=== PATIENT | female | born 1985 | race Asian ===

== ENCOUNTER 2025-09-03 09:05 | Outpatient (CLI) | payer BC, SELFPAY ==
--- NOTE | 2025-09-03 09:15 | CRLHL7_ITS ---
For Patients: As a result of the Century Cures Act, medical imaging exams and procedure reports are released immediately into your electronic medical record. You may view this report before your referring provider. If you have questions, please contact your health care provider. BILATERAL DIGITAL SCREENING MAMMOGRAM WITH COMPUTER-AIDED DETECTION AND TOMOSYNTHESIS CLINICAL HISTORY: Routine screening exam. COMPARISON: None. TECHNIQUE: Digital mammogram in CC and MLO projections including computer-aided detection (CAD). Tomosynthesis was used in this interpretation. BREAST COMPOSITION: The breasts are almost entirely fatty. FINDINGS: RIGHT Breast: No suspicious findings. LEFT Breast: Nodular density within the upper inner quadrant 9 cm from the nipple. IMPRESSION: LEFT breast asymmetry/mass. RECOMMENDATIONS: Additional mammographic views of the LEFT breast including 3D spot-compression CC/MLO. LEFT breast ultrasound may also be required. The [facility] will contact the patient. A lay language report of this examination will be provided to the patient. BI-RADS Category 0: Incomplete: Need Additional Imaging Evaluation Dictated by Chandler Sloan MD @ 09/03/2025 10:21:00 AM/CRL:[email or web address] MAHER/Dictated by: Chandler Sloan MD @ 09/03/2025 10:21:00 AM (Electronically Signed)
== END 2025-09-03 09:06 | disposition home or self-care (01) ==
LOC: MAMMO 09:12
PROVIDERS: PCP Family Medicine; Visit Provider Family Medicine
DX: Z12.31 Encounter for screening mammogram for malignant neoplasm of breast (principal); N63.20 Unspecified lump in the left breast, unspecified quadrant
CPT/HCPCS: 77063; 77067

== ENCOUNTER 2025-09-24 09:34 | Outpatient (CLI) | payer BC, SELFPAY ==
--- NOTE | 2025-09-24 09:45 | CRLHL7_ITS ---
For Patients: As a result of the Cures Act, medical imaging exams and procedure reports are released immediately into your electronic medical record. You may view this report before your referring provider. If you have questions, please contact your health care provider. DIGITAL DIAGNOSTIC LEFT MAMMOGRAM USING TOMOSYNTHESIS LEFT BREAST ULTRASOUND CLINICAL HISTORY: LEFT breast mass/asymmetry. COMPARISON: 09/03/2025. TECHNIQUE: Digital LEFT mammogram in three projections. Tomosynthesis was used in this interpretation. Real-time ultrasound imaging of LEFT breast with imaging documentation. BREAST COMPOSITION: There are scattered areas of fibroglandular density. FINDINGS: Additional mammogram images LEFT breast submitted. Persistent nodular density is present without architectural distortion in the upper breast. No suspicious calcifications. Targeted LEFT breast ultrasound performed. At 11 o`clock 12 cm from the nipple there is a solid hypoechoic nodule which measures 6 x 3 x 8 mm. IMPRESSION: Indeterminate nodule LEFT breast 11 o`clock 12 cm from the nipple. RECOMMENDATIONS: Ultrasound-guided core needle biopsy recommended. A lay language report of this examination will be provided to the patient. BI-RADS Category 4: Suspicious Dictated by Chandler Sloan MD @ 09/24/2025 10:32:01 AM jj/Dictated by: Chandler Sloan MD @ 09/24/2025 10:32:00 AM (Electronically Signed)
--- NOTE | 2025-09-24 10:15 | CRLHL7_ITS ---
For Patients: As a result of the Cures Act, medical imaging exams and procedure reports are released immediately into your electronic medical record. You may view this report before your referring provider. If you have questions, please contact your health care provider. SEE DIGITAL DIAGNOSTIC LEFT MAMMOGRAM PERFORMED SAME DAY CRL:[email or web address] [email or web address]/Dictated by: Chandler Sloan MD @ 09/24/2025 10:39:00 AM (Electronically Signed)
== END 2025-09-24 09:35 | disposition home or self-care (01) ==
PROVIDERS: PCP Family Medicine; Visit Provider Family Medicine
DX: N63.20 Unspecified lump in the left breast, unspecified quadrant (principal); R92.8 Other abnormal and inconclusive findings on diagnostic imaging of breast
CPT/HCPCS: 76642; 77065; G0279

== ENCOUNTER 2025-10-08 09:09 | Outpatient (CLI) | payer BC, SELFPAY ==
--- NOTE | 2025-10-08 09:15 | CRLHL7_ITS ---
For Patients: As a result of the Century Cures Act, medical imaging exams and procedure reports are released immediately into your electronic medical record. You may view this report before your referring provider. If you have questions, please contact your health care provider. ULTRASOUND-GUIDED BREAST BIOPSY AND POST-BIOPSY DIGITAL MAMMOGRAM FOR BIOPSY MARKER PLACEMENT CLINICAL HISTORY: Indeterminate nodule. COMPARISON STUDIES: 09/24/2025. TECHNIQUE: Real-time ultrasound with image documentation was used for targeting the breast lesion. Core biopsy specimens were obtained using an automated gun with an 18-gauge biopsy needle. Post-biopsy CC and ML digital mammograms were obtained to document position of the biopsy marker. CONSENT and TIME OUT: The procedure, risks, and alternatives were explained to the patient, and a consent was signed. Amoret Protocol was followed including pre-procedure verification that relevant information/documentation was available, reviewed and properly matched to the patient; consent accurate and complete; and equipment and supplies available. Time Out was conducted just prior to starting procedure to verify the four required elements: patient identity, correct side/site marked (if applicable), procedure, relevant images/results properly labeled and displayed (if applicable). PROCEDURE: The patient was positioned supine on the ultrasound table. The breast was prepped with ChloraPrep. 8 cc of 1 percent lidocaine used for local anesthesia. Core samples were obtained. A sterile metal biopsy clip was placed percutaneously to nacho the lesion position within the breast. The specimens were placed in 10% formalin and sent to the pathology department. Pressure was held on the biopsy site until all bleeding subsided. The skin incision was closed with Steri-Strips. An ice pack was positioned over the biopsy site. Post-biopsy instructions were reviewed with the patient, and a written copy was given to her. LATERALITY: LEFT breast. LESION: Ovoid hypoechoic solid nodule measures 6 x 3 x 8 mm at 11 o`clock 12 cm from the nipple. SUSPICION FOR MALIGNANCY: Low. NUMBER OF SAMPLES: 5. BIOPSY CLIP SHAPE: Oval. PROXIMITY OF CLIP TO TARGET: Within the lesion. IMPRESSION: Ultrasound-guided breast biopsy. When the pathology report is available, an addendum to this report will be made. ACR not applicable Dictated by Chandler Sloan MD @ 10/08/2025 10:39:53 AM jj/Dictated by: Chandler Sloan MD @ 10/08/2025 10:39:00 AM (Electronically Signed)
--- NOTE | 2025-10-08 10:00 | CRLHL7_ITS ---
For Patients: As a result of the Century Cures Act, medical imaging exams and procedure reports are released immediately into your electronic medical record. You may view this report before your referring provider. If you have questions, please contact your health care provider. SEE ULTRASOUND-GUIDED LEFT BREAST BIOPSY PERFORMED SAME DAY CRL:[email or web address] [email or web address]/Dictated by: Chandler Sloan MD @ 10/08/2025 10:27:00 AM (Electronically Signed)
== END 2025-10-08 09:10 | disposition home or self-care (01) ==
LOC: US 09:09
PROVIDERS: PCP Family Medicine; Visit Provider Family Medicine
DX: R92.8 Other abnormal and inconclusive findings on diagnostic imaging of breast (principal); N63.20 Unspecified lump in the left breast, unspecified quadrant
CPT/HCPCS: 19083; 77065; A4648; A4649